=== PATIENT | male | born 1955 | race African-American/Black ===

== ENCOUNTER 2016-10-30 01:35 | Emergency (ER) | payer MEDICARE ==
--- NOTE | ~2016-10-30 | EKG ---
PATIENT: LACIE COLLAZO UNIT #: [id number] Ventricular Rate: 94 BPM Atrial Rate: 94 BPM P-R Interval: 152 ms QRS Duration: 80 ms Q-T Interval: 352 ms QTC Calculation(Bezet): 440 ms P [place]: 43 degrees Calculated R [place]: 36 degrees Calculated T [place]: 72 degrees Diagnosis Line: Normal sinus rhythm Diagnosis Line: Nonspecific T wave abnormality Diagnosis Line: Otherwise normal ECG Diagnosis Line: When compared with ECG of 09-OCT-2015 21:58, Diagnosis Line: No significant change was found Diagnosis Line: Confirmed by IFEANYI MARIE MD ([id number]) on 11/02/2016 Diagnosis Line: 7:19:19 AM INTERPRETING MD: CYNTHIA JASSO
--- NOTE | ~2016-10-30 | CR72 ---
[facility] A Service of [facility] & [facility] RADIOLOGY TEXT RESULTS PATIENT: LACIE COLLAZO LOCATION: [facility] : 53 UNIT #: [id number] AGE: [address]: Romeo Capps MD SEX: M ORDER DR: [id number] [facility] [address] [place], [place] [address] [id number] E MR#: [id number] Acc #: [id number] NAME: LACIE COLLAZO : 1955 SEX: M STUDY DATE/TIME: 10/30/2016 0:50 UNIT: [facility] ROOM: STUDY DESCRIPTION: CR Chest Single View Portable Attending Physician: Romeo Capps M.D. Ordering Physician: Efe Loomis M.D. Primary Care Physician: Deepak Cesar M.D. MEDICAL IMAGING REPORT This report is preliminary unless electronic signature is present EXAM AP portable chest 10/30/2016 at 00:50 HISTORY Chest pain for 2 days. History of coronary stent placements. COMPARISON AP portable chest 12/29/2013. FINDINGS No acute airspace disease. Heart size is within normal limits. No pleural effusion, pneumothorax or acute osseous abnormality. IMPRESSION No acute cardiopulmonary findings. No significant change since 12/29/2013. Dictated by... Billie Mcclelland M.D. THIS IS AN ELECTRONICALLY VERIFIED REPORT Billie Mcclelland M.D. at 11/03/2016 8:37 AM EVERETTE/shaka TD: 10/30/2016 10:08 JOB #: [id number] MEDICAL IMAGING REPORT Page 1 of 1 COPY
[2016-10-30 01:10] LABS: POC - CKMB <1.0 ng/mL (0.0-7.9); POC - TROPONIN <0.05 ng/mL (<=0.05)
[2016-10-30 01:14] LABS: BASOPHIL# 0.1 X10e3 (0-0.3); BASOPHIL% 0.8 % (0-2.5); DIFF IND NO; EOSINOPHIL# 0.4 X10e3 (0-0.7); EOSINOPHIL% 4.9 % (0.0-7.0); HEMATOCRIT 42.5 % (38.0-50.0); HEMOGLOBIN 13.9 gm/dL (13.0-16.0); LYMPHOCYTE# 2.5 X10e3 (1.0-3.5); LYMPHOCYTE% 30.9 % (17.0-45.0); MEAN CELL VOLUME 85.9 FL (83-96); MEAN CORPUSCULAR HEMOGLOBIN 28.1 PG (28-34); MEAN CORPUSCULAR HGB CONC 32.7 g/dL (30-36); MONOCYTE# 0.6 X10e3 (0-1.0); MONOCYTE% 6.9 % (3.0-12.0); NEUTROPHIL# 4.6 X10e3 (1.5-7.1); NEUTROPHIL% 56.5 % (40-75); PLATELET COUNT 270 X10e3 (140-420); RED BLOOD COUNT 4.95 X10e (3.90-5.60); RED CELL DISTRIBUTION WIDTH 14.2 % (11.0-15.5); WHITE BLOOD COUNT 8.1 X10e3 (4.0-10.5)
[2016-10-30 01:28] LABS: INR 1.1; PARTIAL THROMBOPLASTIN TIME 30.2 SECONDS (23.5-31.3); PROTHROMBIN TIME (PATIENT) 11.5 SECONDS (9.6-11.5)
[~2016-10-30 01:35] MED LIST: APRESOLINE10 MG PO; ASPIRIN PO; ASPIRIN81 M1 PO; ATENOLOL50 MG PO; HYDROCHLOROTHIA25 MG PO; HYDROCODON-ACE1 EAC4 PO; MULTIPLE VITAMI1 T11 PO; NORVASC; OMEPRAZOLE40 MG PO; PLAVIX PO; SKELAXIN PO; UNKNOWN BP MED; VIGAMOX3 ML OP
[2016-10-30 01:40] LABS: ALBUMIN SERUM 4.7 g/dL (3.5-5.0); ALCOHOL BLOOD 130 mg/dL (0); ALKALINE PHOSPHATASE 70 U/L (32-92); ALT (SGPT) 25 U/L (10-40); AST (SGOT) 20 U/L (10-42); BILIRUBIN, DIRECT 0.1 mg/dL (0.0-0.2); BILIRUBIN,INDIRECT 0.8 mg/dL (0.0-0.9); BILIRUBIN,TOTAL 0.9 mg/dL (0.2-2.0); BLOOD UREA NITROGEN 12 mg/dL (9-23); CALCIUM SERUM 9.6 mg/dL (8.4-10.2); CARBON DIOXIDE 26 mmol/L (22-31); CHLORIDE 105 mmol/L (100-111); CREATININE SERUM 1.1 mg/dL (0.6-1.4); GLOM FILT RATE Estimated ABOVE60 mL/min (>60); GLUCOSE FASTING 100 mg/dL (70-110); POTASSIUM 3.7 mmol/L (3.5-5.1); PROTEIN TOTAL SERUM 7.7 g/dL (6.0-8.3); SODIUM 141 mmol/L (135-145)
[2016-10-30 02:33] LABS: POC - CKMB <1.0 ng/mL (0.0-7.9); POC - TROPONIN <0.05 ng/mL (<=0.05)
== END 2016-10-30 03:20 | disposition home or self-care (01) ==
LOC: CED 01:35
PROVIDERS: Emergency Medicine
DX: R07.9 Chest pain, unspecified (principal); K21.9 Gastro-esophageal reflux disease without esophagitis; F10.129 Alcohol abuse with intoxication, unspecified
CPT/HCPCS: 36415; 71010; 80048; 80076; 82553; 83690; 84484; 85025; 85610; 85730; 93005; 99284; G0480; J2543

== ENCOUNTER 2016-11-14 21:50 | Emergency (ER) | payer MEDICARE ==
--- NOTE | ~2016-11-14 | CR151 ---
[facility] A Service of [facility] & [facility] RADIOLOGY TEXT RESULTS PATIENT: LACIE COLLAZO LOCATION: [facility] : 53 UNIT #: [id number] AGE: [address]: González Lloyd SEX: M ORDER DR: [id number] [facility] [address] [place], [place] [address] [id number] E MR#: [id number] Acc #: [id number] NAME: LACIE COLLAZO. : 1955 SEX: M STUDY DATE/TIME: 11/14/2016 21:57 UNIT: [facility] ROOM: STUDY DESCRIPTION: CR Hip Min 2 Views Rt Attending Physician: González Lloyd P.A.-C. Ordering Physician: González Lloyd P.A.-C. Primary Care Physician: Deepak Cesar M.D. MEDICAL IMAGING REPORT This report is preliminary unless electronic signature is present EXAM Right hip series, 11/14/2016. HISTORY Pain. Lower back pain, right hip sore. No known trauma. TECHNIQUE AP radiograph pelvis presented with frog-leg view right hip. FINDINGS Poor quality study due to clothing artifact overlying relevant anatomy. Bony ring of pelvis is intact. Moderate narrowing of the right hip joint. No fracture or traumatic malalignment. Sacroiliac joints and sacral arcuate lines intact. Periarticular soft tissues unremarkable. Visualized bowel gas pattern normal. Dictated by... González Espinoza M.D. THIS IS AN ELECTRONICALLY VERIFIED REPORT González Espinoza M.D. at 11/17/2016 6:09 PM Rebeka TD: 11/15/2016 16:21 JOB #: [id number] MEDICAL IMAGING REPORT Page 1 of 1 COPY
--- NOTE | ~2016-11-14 | CR181 ---
[facility] A Service of [facility] & [facility] RADIOLOGY TEXT RESULTS PATIENT: LACIE COLLAZO LOCATION: [facility] : 53 UNIT #: [id number] AGE: [address]: González Lloyd SEX: M ORDER DR: [id number] [facility] [address] [place], [place] [address] [id number] E MR#: [id number] Acc #: [id number] NAME: LACIE COLLAZO. : 1955 SEX: M STUDY DATE/TIME: 11/14/2016 21:59 UNIT: [facility] ROOM: STUDY DESCRIPTION: CR Lumbar Spine 2 or 3 Views Attending Physician: oGnzález Lloyd P.A.-C. Ordering Physician: González Lloyd P.A.-C. Primary Care Physician: Deepak Cesar M.D. MEDICAL IMAGING REPORT This report is preliminary unless electronic signature is present EXAM Lumbar spine 11/14/2016 HISTORY 59-year-old male with low back pain beginning today. No specific injury. COMPARISON Lumbar spine MRI 03/24/2006. FINDINGS 3 views of the lumbar spine show no acute fracture or subluxation. Vertebral body heights and alignment are normally maintained. Mild multilevel discogenic degenerative changes. Mild multilevel facet arthropathy. Sacrum and SI joints intact. IMPRESSION Mild multilevel degenerative changes. No acute lumbar spine injury. Dictated by... Lion Thomas M.D. THIS IS AN ELECTRONICALLY VERIFIED REPORT Lion Thomas M.D. at 11/16/2016 4:41 PM DAYNE/leatha TD: 11/15/2016 16:32 JOB #: [id number] MEDICAL IMAGING REPORT Page 1 of 1 COPY
== END 2016-11-14 23:10 | disposition home or self-care (01) ==
LOC: CFTX 21:50
DX: M25.551 Pain in right hip (principal)
CPT/HCPCS: 72100; 73502; 99284